=== PATIENT | male | born 1995 | race Caucasian/White ===

== ENCOUNTER 2020-05-28 17:55 | Emergency (ER) | payer OTHER ==
[2020-05-28] MEDS ORDERED: KEFLEX CAP 250250 MG PO (19:24)
[2020-05-28] MEDS ORDERED: LODINE CAP 300300 MG PO (19:24)
== END 2020-05-28 20:17 | disposition home or self-care (01) ==
LOC: ER1 17:55
DX: L05.01 Pilonidal cyst with abscess (principal); F17.210 Nicotine dependence, cigarettes, uncomplicated
CPT/HCPCS: 10060; 10080; 87070; 87205; 99282